=== PATIENT | female | born 1940 | race Caucasian/White ===

== ENCOUNTER 2017-06-11 07:47 | Day surgery (SDC) | payer MEDICARE, BC ==
[~2017-06-11 07:47] MED LIST: Bupivacaine 0.5% 30 ML SDV ONE; Lidocaine 0.5% 50 ML SDV ONE; Midazolam 1 MG/ML 2 ML SDV ONE; Propofol 200 MG/20 ML SDV ONE; fentaNYL 100 MCG/2 ML SDV ONE
[2017-06-11] MEDS ORDERED: Sodium Chloride 0.9% 5 ML Syringe FLUSH PRN (08:00)
[2017-06-11] MEDS ORDERED: Lactated Ringers 1,000 ML IV SCH (08:00)
[2017-06-11] MEDS ORDERED: ceFAZolin 1 GM Vial ONE (08:29)
[2017-06-11] MEDS ORDERED: Lidocaine 0.5% 50 ML SDV INJECT ONE (09:04)
[2017-06-11] MEDS ORDERED: fentaNYL 100 MCG/2 ML SDV IV ONE (09:04)
[2017-06-11] MEDS ORDERED: Midazolam 1 MG/ML 2 ML SDV IV ONE (09:04)
[2017-06-11] MEDS ORDERED: ceFAZolin 1 GM Vial IV ONE (09:04)
[2017-06-11] MEDS ORDERED: Propofol 200 MG/20 ML SDV IV ONE (09:04)
[2017-06-11] MEDS ORDERED: Bupivacaine 0.5% 30 ML SDV INFILT ONE ×2 (09:31)
[2017-06-11 10:39] VITALS: BP 140/78
--- NOTE | 2017-06-11 11:18 | PCM.OPNOTE ---
- General Post-Op/Procedure Note Date of Surgery/Procedure: 06/11/17 Operative Procedure(s): Dictated. Findings: Chronic Carpal tunnel syndrome, Rt Pre Op Diagnosis: as above Post-Op Diagnosis: As above Anesthesia Technique: MAC Primary Surgeon: Russell Elliott Complications: None Condition: Good Free Text/Narrative:: Dictated. Intake & Output 06/10/17 06/11/17 06/11/17 22:59 06:59 14:59 Intake Total 150 Balance 150
--- NOTE | 2017-06-12 08:11 | OR ---
DATE OF SURGERY: 06/11/2017 SURGEON: Russell Elliott MD PATIENT PROFILE: A 77 years old at the [facility] in [place], [place]. PREOPERATIVE DIAGNOSIS: Patient with right carpal tunnel syndrome. POSTOPERATIVE DIAGNOSIS: Patient with right carpal tunnel syndrome. OPERATION PERFORMED: Right carpal tunnel decompression. PROCEDURE IN DETAIL: Informed consent was obtained from the patient regarding this procedure. All possible complications were thoroughly discussed including the possibility of injury to the nerves, tendons, vascular injury, etc. Also, the possibility of recurrence, requiring additional surgical procedures, persistent numbness, scar tissue, etc. Despite these complications, the patient decided to proceed. She was taken to the operating room and kept in the supine position. After exsanguination of the right upper extremity, a Mary block anesthetic was administered by the horseshoer. We prepped and draped the patient in the usual fashion. We then made a vertical incision on the right palm extending from the distal wrist crease for approximately 1 inch. Subcutaneous dissection was performed through the palmar aponeurosis and then we came upon the transverse carpal ligament, which was incised proximally and distally into the palm. Extreme care was taken not to injure the median nerve or any tendon structures in the tunnel. The wound was irrigated with normal saline and the skin was closed using 4-0 nylon in a mattress fashion. Approximately 2 mL of Marcaine 0.5% was left in the wound. A sterile pressure dressing was applied. The patient tolerated the procedure well. There were no operative complications. She was returned to recovery room in an excellent condition. Follow up in the clinic. She was asked to wear a splint during the daytime hours and leave it off at night and during bathing. Follow up in the clinic in 10 days. /[id number]/MODL MTDD
== END 2017-06-11 11:30 | disposition home or self-care (01) ==
LOC: KA.SDS 07:47
PROVIDERS: ATTEND Family Medicine
DX: G56.01 Carpal tunnel syndrome, right upper limb (principal); Z88.8 Allergy status to other drugs, medicaments and biological substances; Z79.82 Long term (current) use of aspirin; Z79.899 Other long term (current) drug therapy
CPT/HCPCS: 64721; J0690; J2250; J2704; J3010; J7120; 01810

== ENCOUNTER 2023-01-13 18:20 | Emergency (ER) | payer MEDICARE, BC ==
[2023-01-13] MEDS ORDERED: Bacitracin Oint 30 GM Tube TOP ONE (19:00)
[2023-01-13] MEDS ORDERED: Diphtheria,Pertussis(Acell),Tetanus Vaccine 0.5 ML Syringe IM ONE (19:02)
[2023-01-13] MEDS: Bacitracin/Neomycin/Polymyxin B Oint 0.9 GM U/D Packet ONE ×2 (19:08→19:54)
[2023-01-13] MEDS: Lidocaine 1% with EPINEPHrine 1:100,000 10 ML MDV ONE ×2 (19:32→19:55)
[2023-01-13] MEDS ORDERED: Lidocaine 1% with EPINEPHrine 1:100,000 10 ML MDV INJECT ONE (19:56)
== END 2023-01-13 19:19 | disposition home or self-care (01) ==
LOC: MERGE 18:20 → KA.ED 18:20
DX: S61.411A Laceration without foreign body of right hand, initial encounter (principal); E78.00 Pure hypercholesterolemia, unspecified; Z23 Encounter for immunization; Z88.1 Allergy status to other antibiotic agents; Z88.5 Allergy status to narcotic agent; Z88.8 Allergy status to other drugs, medicaments and biological substances; Z91.041 Radiographic dye allergy status; Z79.02 Long term (current) use of antithrombotics/antiplatelets; Z79.82 Long term (current) use of aspirin; Z79.899 Other long term (current) drug therapy; W31.89XA Contact with other specified machinery, initial encounter
CPT/HCPCS: 12001; 90471; 90715; 99283; 99283-25; J3490

== ENCOUNTER 2024-04-04 09:45 | Emergency (ER) | payer BC, MEDICARE, OTHER ==
[2024-04-04] MEDS ORDERED: Albuterol/Ipratropium 3.0-0.5 MG/3 ML Neb Soln ONE (10:24)
[2024-04-04] MEDS ORDERED: methylPREDNISolone Sodium Succinate 125 MG/2 ML SDV ONE (10:24)
[2024-04-04] MEDS: Albuterol/Ipratropium 3.0-0.5 MG/3 ML Neb Soln NEB ONE (10:27)
[2024-04-04] MEDS: methylPREDNISolone Sodium Succinate 125 MG/2 ML SDV IVPUSH ONE (10:33)
[2024-04-04 12:37] LABS: ALANINE AMINOTRANSFERASE,ALT 18 U/L (14-63); ALBUMIN 3.61 g/dL (3.40-5.00); ALKALINE PHOSPHATASE 66 U/L (46-116); ANION GAP 11.2 mmol/L (5-15); ASPARTATE AMNIOTRANSFERASE,AST 16 U/L (15-37); BILIRUBIN TOTAL 0.2 mg/dL (0.2-1.0); BLOOD UREA NITROGEN,BUN 8 mg/dL (7-18); CALCIUM 8.6 mg/dL (8.7-10.3); CARBON DIOXIDE,CO2 31.4 mmol/L (21.0-32.0); CHLORIDE,CL 104 mmol/L (98-107); CREATININE 0.93 mg/dL (0.51-1.17); ESTIMATED GFR 60 mL/min (>=60); GLUCOSE RANDOM 89 mg/dL (70-140); POTASSIUM,K 4.6 mmol/L (3.5-5.1); PROTEIN TOTAL,TP 6.8 g/dL (6.4-8.2); SODIUM,NA 142 mmol/L (136-145)
[2024-04-04 12:38] LABS: BASOPHILS ABSOLUTE AUTO 0.07 10^3/uL (0.00-0.10); BASOPHILS PERCENT AUTO 1.2 % (0.0-1.0); EOSINOPHILS ABSOLUTE AUTO 0.88 10^3/uL (0.10-0.30); HEMATOCRIT 30.2 % (37.0-47.0); HEMOGLOBIN 9.1 g/dL (12.0-16.0); LYMPHOCYTES ABSOLUTE AUTO 1.37 10^3/uL (1.00-4.00); LYMPHOCYTES PERCENT AUTO 23.3 % (20.0-40.0); MEAN CORPUSCULAR HEMOGLOBIN 24.1 pg (27.0-31.0); MEAN CORPUSCULAR HGB CONC 30.1 g/dL (32.0-36.0); MEAN CORPUSCULAR VOLUME 79.9 fL (82.0-92.0); MEAN PLATELET VOLUME 8.1 fL (7.4-10.4); MONOCYTES ABSOLUTE AUTO 0.74 10^3/uL (0.10-0.80); MONOCYTES PERCENT AUTO 12.6 % (2.0-8.0); NEUTROPHILS ABSOLUTE AUTO 2.82 10^3/uL (2.50-7.00); NEUTROPHILS PERCENT AUTO 47.9 % (50.0-70.0); PLATELET COUNT,PLT 357 10^3/uL (150-400); RED BLOOD CELL COUNT 3.78 10^6/uL (3.80-5.50); RED CELL DISTRIBUTION WIDTH 15.4 % (11.5-14.5); WHITE BLOOD CELL COUNT,WBC 5.88 10^3/uL (5.00-10.00)
== END 2024-04-04 11:32 | disposition home or self-care (01) ==
LOC: KA.ED 09:45
DX: J44.1 Chronic obstructive pulmonary disease with (acute) exacerbation (principal); Z79.899 Other long term (current) drug therapy
CPT/HCPCS: 36415; 71046; 80053; 84484; 85025; 93005; 93010; 96374; 99284; 99285; J2919; J7620-GY

== ENCOUNTER 2024-08-15 10:24 | Emergency (ER) | payer MEDICARE ==
[2024-08-15 11:00] LABS: BASOPHILS ABSOLUTE AUTO 0.06 10^3/uL (0.00-0.10); BASOPHILS PERCENT AUTO 0.6 % (0.0-1.0); EOSINOPHILS ABSOLUTE AUTO 0.14 10^3/uL (0.10-0.30); EOSINOPHILS PERCENT AUTO 1.4 % (1.0-3.0); HEMATOCRIT 23.5 % (37.0-47.0); IMMATURE GRAN ABSOLUTE AUTO 0.01 10^3/uL (0.00-0.50); IMMATURE GRAN PERCENT AUTO 0.1 % (0.0-5.0); LYMPHOCYTES ABSOLUTE AUTO 0.88 10^3/uL (1.00-4.00); LYMPHOCYTES PERCENT AUTO 8.6 % (20.0-40.0); MEAN CORPUSCULAR HGB CONC 28.5 g/dL (32.0-36.0); MONOCYTES ABSOLUTE AUTO 1.14 10^3/uL (0.10-0.80); MONOCYTES PERCENT AUTO 11.2 % (2.0-8.0); NEUTROPHILS ABSOLUTE AUTO 7.97 10^3/uL (2.50-7.00); NEUTROPHILS PERCENT AUTO 78.1 % (50.0-70.0); PLATELET COUNT,PLT 386 10^3/uL (150-400); RED BLOOD CELL COUNT 3.53 10^6/uL (3.80-5.50); RED CELL DISTRIBUTION WIDTH 19.5 % (11.5-14.5)
[2024-08-15] MEDS: Ondansetron 4 MG/2 ML SDV IVPUSH ONE (11:04)
[2024-08-15] MEDS: Acetaminophen 500 MG Tab PO ONE (11:04)
[2024-08-15] MEDS: Morphine 2 MG/ML SYRINGE IVPUSH ONE (11:05)
[2024-08-15 11:18] LABS: ALBUMIN 3.54 g/dL (3.40-5.00); ANION GAP 12.4 mmol/L (5-15); BILIRUBIN TOTAL 0.5 mg/dL (0.2-1.0); CALCIUM 7.9 mg/dL (8.7-10.3); CARBON DIOXIDE,CO2 27.1 mmol/L (21.0-32.0); CREATININE 0.88 mg/dL (0.51-1.17); EST CRCL DRUG DOSING (CG) 32.96 mL/min; POTASSIUM,K 4.5 mmol/L (3.5-5.1); PROTEIN TOTAL,TP 6.8 g/dL (6.4-8.2)
[2024-08-15 11:29] LABS: HEMOGLOBIN 6.7 g/dL (12.0-16.0)
[2024-08-15 11:30] LABS: MEAN CORPUSCULAR VOLUME 66.6 fL (82.0-92.0)
[2024-08-15 12:00] LABS: INR 0.9 (0.9-1.1); PROTHROMBIN TIME 10.1 SEC (9.3-12.2)
== END 2024-08-15 13:15 ==
LOC: KA.ED 10:24
DX: S22.32XA Fracture of one rib, left side, initial encounter for closed fracture (principal); D64.9 Anemia, unspecified; E78.00 Pure hypercholesterolemia, unspecified; F17.210 Nicotine dependence, cigarettes, uncomplicated; Z91.041 Radiographic dye allergy status; Z88.8 Allergy status to other drugs, medicaments and biological substances; Z79.82 Long term (current) use of aspirin; Z79.899 Other long term (current) drug therapy; W19.XXXA Unspecified fall, initial encounter; W22.8XXA Striking against or struck by other objects, initial encounter
CPT/HCPCS: 36415; 70450; 70486; 71101-LT; 71250; 80053; 85025; 85610; 96374; 96375; 99285-25; A9270-GY; J2270; J2405

== ENCOUNTER 2024-08-23 12:15 | Emergency (ER) | payer MEDICARE, OTHER ==
[2024-08-23 13:04] LABS: ALBUMIN 2.98 g/dL (3.40-5.00); ANION GAP 10.6 mmol/L (5-15); BILIRUBIN TOTAL 0.4 mg/dL (0.2-1.0); CARBON DIOXIDE,CO2 30.7 mmol/L (21.0-32.0); CREATININE 1.1 mg/dL (0.51-1.17); EST CRCL DRUG DOSING (CG) 26.37 mL/min; POTASSIUM,K 4.3 mmol/L (3.5-5.1); PROTEIN TOTAL,TP 6.3 g/dL (6.4-8.2)
[2024-08-23 13:10] LABS: BASOPHILS ABSOLUTE AUTO 0.05 10^3/uL (0.00-0.10); BASOPHILS PERCENT AUTO 0.6 % (0.0-1.0); EOSINOPHILS ABSOLUTE AUTO 0.65 10^3/uL (0.10-0.30); EOSINOPHILS PERCENT AUTO 8.2 % (1.0-3.0); HEMATOCRIT 31.3 % (37.0-47.0); HEMOGLOBIN 9.4 g/dL (12.0-16.0); IMMATURE GRAN ABSOLUTE AUTO 0.02 10^3/uL (0.00-0.50); IMMATURE GRAN PERCENT AUTO 0.3 % (0.0-5.0); LYMPHOCYTES ABSOLUTE AUTO 1.04 10^3/uL (1.00-4.00); LYMPHOCYTES PERCENT AUTO 13.2 % (20.0-40.0); MEAN CORPUSCULAR HEMOGLOBIN 23.7 pg (27.0-31.0); MONOCYTES ABSOLUTE AUTO 0.92 10^3/uL (0.10-0.80); MONOCYTES PERCENT AUTO 11.7 % (2.0-8.0); NEUTROPHILS ABSOLUTE AUTO 5.21 10^3/uL (2.50-7.00); PLATELET COUNT,PLT 389 10^3/uL (150-400); RED BLOOD CELL COUNT 3.97 10^6/uL (3.80-5.50); RED CELL DISTRIBUTION WIDTH 26.7 % (11.5-14.5); WHITE BLOOD CELL COUNT,WBC 7.89 10^3/uL (5.00-10.00)
[2024-08-23 13:21] LABS: MEAN CORPUSCULAR VOLUME 78.8 fL (82.0-92.0)
[2024-08-23] MEDS: Sodium Chloride 0.9% 10 ML Syringe FLUSH PRN (16:54)
[2024-08-23] MEDS: Pantoprazole 40 MG Vial IVPUSH ONE (16:55)
[2024-08-23] MEDS: Acetaminophen/HYDROcodone 325-5 MG Tab PO ONE (18:05)
[2024-08-23] MEDS: Ondansetron 4 MG Tab.DIS PO ONE (18:06)
== END 2024-08-23 18:21 ==
LOC: KA.ED 12:15
DX: R53.1 Weakness (principal); R09.02 Hypoxemia; D64.9 Anemia, unspecified; K26.4 Chronic or unspecified duodenal ulcer with hemorrhage; R29.6 Repeated falls; E78.00 Pure hypercholesterolemia, unspecified; Z91.041 Radiographic dye allergy status; Z88.8 Allergy status to other drugs, medicaments and biological substances; Z79.82 Long term (current) use of aspirin; Z79.899 Other long term (current) drug therapy
CPT/HCPCS: 71046; 80053; 82272; 85025; 96374; 99285; A9270; J2470; 99284